=== PATIENT | female | born 1995 | race Caucasian/White ===

== ENCOUNTER 2018-04-29 19:14 | Emergency (ER) | payer OTHER ==
--- NOTE | 2018-04-29 22:04 | RAD REPORT ---
EXAM DESCRIPTION: CT - Head Brain Wo Cont - 04/29/2018 9:33 pm CLINICAL HISTORY: Right-side by head pain, no visual loss COMPARISON: None. TECHNIQUE: Axial 5 mm thick images of the head were obtained without IV contrast. All CT scans are performed using dose optimization technique as appropriate and may include automated exposure control or mA/KV adjustment according to patient size. FINDINGS: No intracranial hemorrhage, mass, edema or shift of mid-line structures. No acute infarcti on changes seen. No abnormal extra-axial fluid collections. Ventricles are normal. Mastoid air cells are clear. Minimal air-fluid levels present in each maxillary sinus. Tonsils are l ow-lying. No acute bony findings. IMPRESSION: No intracranial acute abnormality identified. Sinusitis findings with air-fluid levels in each maxillary sinus.
--- NOTE | 2018-04-29 22:23 | EDPHYS ---
Physician Documentation [facility] Name: Lilian Cardona Age: 22 yrs Sex: Female : 1995 Arrival Date: 04/29/2018 Time: 19:26 Bed 14 Private MD: ED Physician Edison Cortez HPI: 04/29 20:48 This 22 yrs old Female presents to ER via Ambulatory with complaints of Eye rn Pain. 20:48 The patient is experiencing pain, tearing, The patient sustained None. to the right rn eye, caused by an unknown mechanism. Onset: The symptoms/episode began/occurred 3 day(s) ago. Duration: the symptoms are continuous. Aggravated by blinking, rubbing. Severity of symptoms: At their worst the symptoms were mild in the emergency department the symptoms are unchanged. The patient has not experienced similar symptoms in the past. Reports right eye pain, for 2-3 days, + tearing and intermittent blurred vision when tears, no fever, noticed swelling around right eye that has improved with warm compress and benadryl. No head trauma. Does not wear contacts or glasses, no known splash or injury.. Historical: - Allergies: 19:33 No Known Allergies; la1 - PMHx: 19:33 None; la1 - Immunization history:: Adult Immunizations up to date. - Social history:: Smoking status: Patient/guardian denies using tobacco. - Ebola Screening: : No symptoms or risks identified at this time. - Family history:: not pertinent. - Hospitalizations: : No recent hospitalization is reported. ROS: 20:48 Constitutional: Negative for fever, chills, and weight loss, Eyes: Negative for injury, rn + pain and blurred vision ENT: Negative for injury Skin: Negative for injury, rash, and discoloration, Neuro: + headache Exam: 20:48 Visual Acuity: Visual acuity is within normal limits. rn 20:48 Constitutional: This is a well developed, well nourished patient who is awake, alert, and in no acute distress. Head/Face: Normocephalic, atraumatic. Eyes: Pupils equal round and reactive to light, extra-ocular motions intact. Conjunctiva and sclera are non-icteric and not injected. Cornea within normal limits. + right periorbital and upper eyelid swelling, no fluctuance, no lesions, no erythema. ENT: No oral lesions Neuro: Awake and alert, GCS 15, oriented to person, place, time, and situation. Cranial nerves II-XII grossly intact. Motor strength 5/5 in all extremities. Sensory grossly intact. Cerebellar exam normal. Normal gait. Vital Signs: 19:33 BP 170 / 100; Pulse 97; Resp 16; Temp 97.8; Pulse Ox 98% on R/A; Weight 109.32 kg; la1 Height 5 ft. 8 in. (172.72 cm); 22:05 BP 133 / 83; Pulse 87; Resp 16; Pulse Ox 100% on R/A; jb4 22:48 BP 138 / 83; Pulse 81; Resp 16; Pulse Ox 98% on R/A; lp1 19:33 Body Mass Index 36.64 (109.32 kg, 172.72 cm) la1 Visual Acuity: 21:30 Left Eye Visual acuity 20/20, Pupil size 4 mm, Normal, React To Light, Reactive To jb4 Accomodation; Right Eye Visual acuity 20/20, Pupil size 4 mm, Normal, React To Light, Reactive To Accomodation; Both Eyes Visual acuity 20/20; With Lenses; MDM: 20:38 Patient medically screened. rn 22:22 Differential diagnosis: periorbital cellulitis. Data reviewed: vital signs, nurses rn notes, radiologic studies, CT scan, and as a result, I will discharge patient. Counseling: I had a detailed discussion with the patient and/or guardian regarding: the historical points, exam findings, and any diagnostic results supporting the discharge/admit diagnosis, radiology results, the need for outpatient follow up, to return to the emergency department if symptoms worsen or persist or if there are any questions or concerns that arise at home. Special discussion: I discussed with the patient/guardian in detail that at this point there is no indication for admission to the hospital. It is understood, however, that if the symptoms persist or worsen the patient needs to return immediately for re-evaluation. 04/29 20:48 Order name: CT Head Brain wo Cont rn 04/29 22:05 Order name: CT; Complete Time: 22:22 EDMS Administered Medications: No medications were administered Disposition: 04/29/18 22:23 Discharged to Home. Impression: Acute sinusitis. - Condition is Stable. - Discharge Instructions: Sinusitis, Adult. - Prescriptions for Augmentin 875- 125 mg Oral Tablet - take 1 tablet by ORAL route every 12 hours for 10 days; 20 tablet. Vigamox 0.5 % Ophthalmic Drops - instill 1 drop by OPHTHALMIC route every 8 hours for 7 days; 5 milliliter. - Medication Reconciliation Form, Thank You Letter, Antibiotic Education, Prescription Opioid Use form. - Follow up: Private Physician; When: As needed; Reason: Recheck today's complaints, Re-evaluation by your physician. - Problem is new. - Symptoms have improved. Signatures: Dispatcher [employer] EDMS Edison Cortez MD MD rn Teetee May RN RN lp1 Pasha Gilbert RN RN la1 Corrections: (The following items were deleted from the chart) 22:49 22:23 04/29/2018 22:23 Discharged to Home. Impression: Acute sinusitis. Condition is lp1 Stable. Forms are Medication Reconciliation Form, Thank You Letter, Antibiotic Education, Prescription Opioid Use. Follow up: Private Physician; When: As needed; Reason: Recheck today's complaints, Re-evaluation by your physician. Problem is new. Symptoms have improved. rn
--- NOTE | 2018-04-29 22:23 | ER ---
Nurse's Notes [facility] Name: Lilian Cardona Age: 22 yrs Sex: Female : 1995 Arrival Date: 04/29/2018 Time: 19:26 Bed 14 Private MD: Diagnosis: Acute sinusitis Presentation: 04/29 19:33 Presenting complaint: Patient states: Right eye and head pain for one day, denies la1 injury. Transition of care: patient was not received from another setting of care. Mechanism of Injury: No Mechanism of Injury. The patient denies any loss of vision. Onset of symptoms was April 29, 2018. Risk Assessment: Do you want to hurt yourself or someone else? Patient reports no desire to harm self or others. Initial Sepsis Screen: Does the patient meet any 2 criteria? No. Patient's initial sepsis screen is negative. Does the patient have a suspected source of infection? No. Patient's initial sepsis screen is negative. Care prior to arrival: None. 19:33 Method Of Arrival: Ambulatory la1 19:33 Acuity: HOOD 3 la1 Historical: - Allergies: 19:33 No Known Allergies; la1 - PMHx: 19:33 None; la1 - Immunization history:: Adult Immunizations up to date. - Social history:: Smoking status: Patient/guardian denies using tobacco. - Ebola Screening: : No symptoms or risks identified at this time. - Family history:: not pertinent. - Hospitalizations: : No recent hospitalization is reported. Screenin:30 Abuse screen: Denies threats or abuse. Nutritional screening: No deficits noted. jb4 Tuberculosis screening: No symptoms or risk factors identified. Fall Risk None identified. Assessment: 21:30 General: Appears in no apparent distress. uncomfortable, Behavior is calm, cooperative, jb4 appropriate for age. Pain: Denies pain. Neuro: Level of Consciousness is awake, alert, obeys commands, Oriented to person, place, time, situation, Pupils are PERRLA. Cardiovascular: Patient's skin is warm and dry. Respiratory: Airway is patent Respiratory effort is even, unlabored, Respiratory pattern is regular, symmetrical. GI: No signs and/or symptoms were reported involving the gastrointestinal system. : No signs and/or symptoms were reported regarding the genitourinary system. EENT: Eyes eyes are PERRLA. Sclera/Cornea are reddened in outer aspect of conjuctiva of right eye and inner aspect of conjuctiva of right eye. Derm: Skin is intact, Skin is pink, warm \T\ dry. Musculoskeletal: Circulation, motion, and sensation intact. 22:48 Reassessment: Patient appears in no apparent distress at this time. Patient is alert, lp1 oriented x 3, equal unlabored respirations, skin warm/dry/pink. Vital Signs: 19:33 BP 170 / 100; Pulse 97; Resp 16; Temp 97.8; Pulse Ox 98% on R/A; Weight 109.32 kg; la1 Height 5 ft. 8 in. (172.72 cm); 22:05 BP 133 / 83; Pulse 87; Resp 16; Pulse Ox 100% on R/A; jb4 22:48 BP 138 / 83; Pulse 81; Resp 16; Pulse Ox 98% on R/A; lp1 19:33 Body Mass Index 36.64 (109.32 kg, 172.72 cm) la1 Visual Acuity: 21:30 Left Eye Visual acuity 20/20, Pupil size 4 mm, Normal, React To Light, Reactive To jb4 Accomodation; Right Eye Visual acuity 20/20, Pupil size 4 mm, Normal, React To Light, Reactive To Accomodation; Both Eyes Visual acuity 20/20; With Lenses; ED Course: 19:26 Patient arrived in ED. es 19:33 Triage completed. la1 19:34 Arm band placed on right wrist. la1 20:38 Edison Cortez MD is Attending Physician. rn 21:30 Patient has correct armband on for positive identification. Bed in low position. Call jb4 light in reach. Side rails up X 1. Pulse ox on. NIBP on. 21:31 CT completed. Patient tolerated procedure well. Patient moved back from CT. kw1 21:55 Edward Armenta, NIGEL is Primary Nurse. jb4 22:49 No provider procedures requiring assistance completed. Patient did not have IV access lp1 during this emergency room visit. Administered Medications: No medications were administered Outcome: 22:23 Discharge ordered by . rn 22:49 Discharged to home ambulatory, with significant other. lp1 22:49 Condition: good 22:49 Discharge instructions given to patient, Instructed on discharge instructions, follow up and referral plans. medication usage, Demonstrated understanding of instructions, follow-up care, medications, Prescriptions given X 2. 22:49 Patient left the ED. lp1 Signatures: Kavya Jordan Roman, MD MD rn Pena, Laura, RN RN lp1 Pasha Gilbert RN RN la1 Edward Armenta RN RN jb4 Vee White
== END 2018-04-29 22:49 | disposition home or self-care (01) ==
LOC: ER 19:14
DX: J01.90 Acute sinusitis, unspecified (principal)
CPT/HCPCS: 70450; 99284